=== PATIENT | male | born 1995 | race Caucasian/White ===

== ENCOUNTER 2017-03-27 05:35 | Observation (INO) | payer SELFPAY ==
[2017-03-27] VITALS (9 sets, daily range): BP systolic 117–149; BP diastolic 57–86; PULSE 75–105; RESP 16–24; TEMP 98.4–99; O2SAT 96–100
[~2017-03-27] VITALS: Ht 185.4 cm; Wt 90.0 kg
[~2017-03-27 05:35] MED LIST: IBUP600 PO; Z.0.NO CURRENT MEDS
[2017-03-27] MEDS ORDERED: SODIUM CHLOR 0.9% 1000 ML INJ 1,000 ML IV ONE ×2 (05:37→06:45)
[2017-03-27] MEDS ORDERED: SODIUM CHLORIDE 0.9% FLUSH 10 ML FLUSH IVF PRN (05:45)
--- NOTE | 2017-03-27 05:49 | PD ---
HPI Chief Complaint: Syncope/Near-Syncope Time Seen by Provider: 05:37 Travel History International Travel<30 days: No Contact w/Intl Traveler<30days: No Traveled to known affect area: No History of Present Illness HPI The patient is a 22-year-old male who presents emergency department for a syncopal episode. The patient states he smoked marijuana last night, did not well, and get up to use the restroom earlier tonight when he apparently has syncopal episode. According to EMS, the brother states the patient was walking back to his bedroom when he has syncopal episode. The patient does not recall the syncopal episode, but does complain of mild chest tightness and shortness of breath. The patient states he has had multiple episodes of syncope in the past but has not had a workup secondary to insurance issues. He denies any known history of arrhythmia or valvular disorders. He denies any current headache, neck pain, nausea, vomiting, diarrhea, abdominal pain, or weakness of the upper or lower extremities. He does complain of mild shortness of breath, states this is been ongoing for several years is intermittent and is not exacerbated by exertion. Symptoms are mild to moderate, no alleviating or exacerbating factors. The patient denies any trauma to the tongue or urinary incontinence. PFSH Past Medical History Narrative Medical ADHD Diminished Hearing: No Past Surgical History Surgical History: No Previous Surgery Social History Alcohol Use: Yes (OCC.) Tobacco Use: Yes Substance Use: Yes (MARIJUANA) Allergies-Medications (Allergen,Severity, Reaction): Coded Allergies: No Known Allergies (Verified , 03/27/17) Reported Meds & Prescriptions Reported Meds & Active Scripts Active Review of Systems Except as stated in HPI: all other systems reviewed are Neg Eyes: No: Blurred Vision HENT: No: Headaches, Lightheadedness, Neck Pain Cardiovascular: Positive: Chest Pain or Discomfort Respiratory: Positive: Shortness of Breath Gastrointestinal: No: Nausea, Vomiting, Abdominal Pain Musculoskeletal: No: Weakness Neurologic: Positive: Other (positive LOC according to EMS report from brother) , No: Dizziness, Focal Abnormalities, Change in Mentation, Paresthesia, Sensory Disturbance Physical Exam Narrative GENERAL: Awake, alert, pleasant 22-year-old male who appears his stated age and is in no acute respiratory distress. SKIN: Focused skin assessment warm/dry. HEAD: Atraumatic. Normocephalic. No obvious hematomas or areas of ecchymosis. EYES: Pupils equal and round. Pupils are 4 mm bilateral and reactive. ENT: No nasal bleeding or discharge. Mucous membranes pink and moist. No obvious trauma to the tongue. NECK: Trachea midline. No JVD. No tenderness of the cervical vertebrae. CARDIOVASCULAR: Regular, tachycardic with a heart rate of 105. RESPIRATORY: No accessory muscle use. Clear to auscultation. Breath sounds equal bilaterally. GASTROINTESTINAL: Abdomen soft, non-tender, nondistended. No rebound tenderness. MUSCULOSKELETAL: No obvious deformities. No clubbing. No cyanosis. No edema. NEUROLOGICAL: Awake and alert. No obvious cranial nerve deficits. Motor grossly within normal limits. Normal speech. Nonfocal. 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 PSYCHIATRIC: Appropriate mood and affect; insight and judgment normal. Data Data Last Documented VS Vital Signs Date Time Temp Pulse Resp B/P Pulse Ox O2 Delivery O2 Flow Rate FiO2 03/27/17 06:09 110 20 129/58 107 17 129/62 116 24 125/72 03/27/17 05:48 100 Room Air 03/27/17 05:39 98.6 Orders Electrocardiogram (03/27/17 05:37) Complete Blood Count With Diff (03/27/17 05:37) Comprehensive Metabolic Panel (03/27/17 05:37) Magnesium (Mg) (03/27/17 05:37) Chest, Single Ap (03/27/17 05:37) Ecg Monitoring (03/27/17 05:37) Iv Access Insert/Monitor (03/27/17 05:37) Oximetry (03/27/17 05:37) Sodium Chloride 0.9% Flush (Ns Flush) (03/27/17 05:45) Sodium Chlor 0.9% 1000 Ml Inj (Ns 1000 M (03/27/17 05:37) Orthostatic Vital Signs (03/27/17 05:37) Lactic Acid (03/27/17 05:37) Ct Brain W/O Iv Contrast(Rout) (03/27/17 ) Admit Order (Ed Use Only) (03/27/17 06:37) Sodium Chlor 0.9% 1000 Ml Inj (Ns 1000 M (03/27/17 06:45) Echo 2d Comp With Doppler (03/27/17 ) Eeg Study (03/27/17 ) ^ Seizure Precautions (03/27/17 06:33) Lorazepam Inj (Ativan Inj) (03/27/17 06:45) Lactic Acid (03/27/17 12:00) Place In Observation (03/27/17 ) Vital Signs (Adult) Q4H (03/27/17 06:33) Neuro Checks Q4H (03/27/17 06:33) Activity Oob With Assistance (03/27/17 06:33) Surgery Manager / Telemetry .CONTINUOUS (03/27/17 06:33) Intake + Output MEME.QSHIFT (03/27/17 06:33) Diet Regular Basic (03/27/17 Breakfast) Sodium Chlor 0.9% 1000 Ml Inj (Ns 1000 M (03/27/17 06:33) Sodium Chloride 0.9% Flush (Ns Flush) (03/27/17 06:45) Sodium Chloride 0.9% Flush (Ns Flush) (03/27/17 09:00) Ondansetron Inj (Zofran Inj) (03/27/17 06:45) Comprehensive Metabolic Panel (03/28/17 06:00) Complete Blood Count With Diff (03/28/17 06:00) Troponin I (03/27/17 12:00) Troponin I (03/27/17 18:00) Scd Bilateral/Knee High MEME.BID (03/27/17 06:33) Shin Bilateral/Knee High MEME.QSHIFT (03/27/17 06:33) Acetaminophen (Tylenol) (03/27/17 06:45) Docusate Sodium-Senna (Tia-Colace) (03/27/17 09:00) Magnesium Hydroxide Liq (Milk Of Magnesi (03/27/17 06:45) Sennosides (Senokot) (03/27/17 06:45) Bisacodyl Supp (Dulcolax Supp) (03/27/17 06:45) Lactulose Liq (Lactulose Liq) (03/27/17 06:45) Urinalysis - C+S If Indicated (03/27/17 06:38) Drug Screen, Random Urine (03/27/17 06:38) Labs Laboratory Tests Test 03/27/17 05:50 White Blood Count 13.7 TH/MM3 Red Blood Count 4.80 MIL/MM3 Hemoglobin 13.5 GM/DL Hematocrit 39.1 % Mean Corpuscular Volume 81.5 FL Mean Corpuscular Hemoglobin 28.2 PG Mean Corpuscular Hemoglobin 34.6 % Concent Red Cell Distribution Width 12.9 % Platelet Count 211 TH/MM3 Mean Platelet Volume 8.9 FL Neutrophils (%) (Auto) 68.5 % Lymphocytes (%) (Auto) 21.6 % Monocytes (%) (Auto) 5.3 % Eosinophils (%) (Auto) 4.3 % Basophils (%) (Auto) 0.3 % Neutrophils # (Auto) 9.4 TH/MM3 Lymphocytes # (Auto) 3.0 TH/MM3 Monocytes # (Auto) 0.7 TH/MM3 Eosinophils # (Auto) 0.6 TH/MM3 Basophils # (Auto) 0.0 TH/MM3 CBC Comment DIFF FINAL Differential Comment Sodium Level 139 MEQ/L Potassium Level 3.7 MEQ/L Chloride Level 103 MEQ/L Carbon Dioxide Level 26.1 MEQ/L Anion Gap 10 MEQ/L Blood Urea Nitrogen 10 MG/DL Creatinine 1.21 MG/DL Estimat Glomerular Filtration 74 ML/MIN Rate Random Glucose 232 MG/DL Lactic Acid Level 3.2 mmol/L Calcium Level 8.6 MG/DL Magnesium Level 2.0 MG/DL Total Bilirubin 0.3 MG/DL Aspartate Amino Transf 8 U/L (AST/SGOT) Alanine Aminotransferase 19 U/L (ALT/SGPT) Alkaline Phosphatase 50 U/L Total Protein 7.0 GM/DL Albumin 3.6 GM/DL [facility] Medical Decision Making Medical Screen Exam Complete: Yes Emergency Medical Condition: Yes Medical Record Reviewed: Yes Interpretation(s) EKG reveals normal sinus rhythm with a rate in 99. No ischemic changes or ectopy noted. No evidence of WPW or Brugada syndrome. Last Impressions Chest X-Ray 03/27/17 0537 Signed Impressions: Service Date/Time: Monday, March 27, 2017 05:52 - CONCLUSION: No acute disease. Rafael Judge MD Head CT 03/27/17 0000 Signed Impressions: Service Date/Time: Monday, March 27, 2017 06:44 - CONCLUSION: No acute disease. Paranasal sinus disease. Rafael Judge MD Laboratory Tests Test 03/27/17 05:50 White Blood Count 13.7 TH/MM3 Red Blood Count 4.80 MIL/MM3 Hemoglobin 13.5 GM/DL Hematocrit 39.1 % Mean Corpuscular Volume 81.5 FL Mean Corpuscular Hemoglobin 28.2 PG Mean Corpuscular Hemoglobin 34.6 % Concent Red Cell Distribution Width 12.9 % Platelet Count 211 TH/MM3 Mean Platelet Volume 8.9 FL Neutrophils (%) (Auto) 68.5 % Lymphocytes (%) (Auto) 21.6 % Monocytes (%) (Auto) 5.3 % Eosinophils (%) (Auto) 4.3 % Basophils (%) (Auto) 0.3 % Neutrophils # (Auto) 9.4 TH/MM3 Lymphocytes # (Auto) 3.0 TH/MM3 Monocytes # (Auto) 0.7 TH/MM3 Eosinophils # (Auto) 0.6 TH/MM3 Basophils # (Auto) 0.0 TH/MM3 CBC Comment DIFF FINAL Differential Comment Sodium Level 139 MEQ/L Potassium Level 3.7 MEQ/L Chloride Level 103 MEQ/L Carbon Dioxide Level 26.1 MEQ/L Anion Gap 10 MEQ/L Blood Urea Nitrogen 10 MG/DL Creatinine 1.21 MG/DL Estimat Glomerular Filtration 74 ML/MIN Rate Random Glucose 232 MG/DL Lactic Acid Level 3.2 mmol/L Calcium Level 8.6 MG/DL Magnesium Level 2.0 MG/DL Total Bilirubin 0.3 MG/DL Aspartate Amino Transf 8 U/L (AST/SGOT) Alanine Aminotransferase 19 U/L (ALT/SGPT) Alkaline Phosphatase 50 U/L Total Protein 7.0 GM/DL Albumin 3.6 GM/DL Differential Diagnosis Differential diagnosis includes syncope, arrhythmia, valvular disorder, vasovagal syncope, dehydration, electrolyte abnormality, seizure. Narrative Course IV was established, labs are drawn and sent, and the patient was placed on cardiac telemetry monitoring and continuous pulse oximetry monitoring. EKG was ordered and interpreted. Chest x-ray was obtained. The patient was administered IV fluids and monitored in the emergency department. EKG is unremarkable, no evidence of WPW, Brugada syndrome, or ectopy. Chest x-rays unremarkable. Lactic acid is elevated at 3.2, patient may have had a syncopal episode versus a seizure. He states he's had multiple events like this in the past with no workup, has no access to healthcare does not have a primary physician or insurance. Therefore, discussed the patient with the on-call hospitalist who agrees with 23 hour observation, patient will benefit from cardiac telemetry monitoring, echocardiogram, EEG. CT the brain was negative. Patient will be a 23 hour observation. Physician Communication Physician Communication I discussed the patient with Dr. Bolivar who agrees with 23 hour observation. Diagnosis Primary Impression: Syncope Qualified Code: R55 - Syncope, unspecified syncope type Admitting Information Admitting Physician Requests: Observation Condition: Stable Mp Adan MD Mar 27, 2017 05:49
--- NOTE | 2017-03-27 06:01 | RADRPT ---
EXAM DATE/TIME: 03/27/2017 05:52 [facility] COMPARISON: CHEST SINGLE AP, April 23, 2016, 21:03. INDICATIONS : Syncopal episode this morning. MEDICAL HISTORY : None. SURGICAL HISTORY : None. ENCOUNTER: Initial ACUITY: 1 day PAIN SCORE: 7/10 LOCATION: Bilateral chest FINDINGS: A single view of the chest demonstrates the lungs to be symmetrically aerated without evidence of mas s, infiltrate or effusion. The cardiomediastinal contours are unremarkable. Osseous structures are intact. CONCLUSION: No acute disease. Rafael Judge MD on March 27, 2017 at 6:00 Board Certified Radiologist. This report was verified electronically.
[2017-03-27 06:10] LABS: AUTOMATED NEUTROPHIL # 9.4 TH/MM3 (1.8-7.7); BASOPHIL % 0.3 % (0.0-2.0); EOSINOPHIL # 0.6 TH/MM3 (0-0.4); EOSINOPHIL % 4.3 % (0.0-4.0); HEMATOCRIT 39.1 % (39.0-51.0); HEMO FLAGS DIFF FINAL; LYMPH % 21.6 % (9.0-44.0); MEAN CELL VOLUME 81.5 FL (80.0-100.0); MEAN CORPUSCULAR HEMOGLOBIN 28.2 PG (27.0-34.0); MEAN CORPUSCULAR HGB CONC 34.6 % (32.0-36.0); MONO % 5.3 % (0.0-8.0); NEUT % 68.5 % (16.0-70.0); PLATELET COUNT 211 TH/MM3 (150-450); RED CELL DISTRIBUTION WIDTH 12.9 % (11.6-17.2); WHITE BLOOD COUNT 13.7 TH/MM3 (4.0-11.0)
[2017-03-27 06:26] LABS: ALT (GPT) 19 U/L (12-78); ANION GAP 10 MEQ/L (5-15); AST (GOT) 8 U/L (15-37); BICARBONATE 26.1 MEQ/L (21.0-32.0); BLOOD UREA NITROGEN 10 MG/DL (7-18); CHLORIDE 103 MEQ/L (98-107); GLOMERULAR FILTRATION RATE 74 ML/MIN (>89); POTASSIUM 3.7 MEQ/L (3.5-5.1); SODIUM (NA) 139 MEQ/L (136-145)
[2017-03-27 06:29] LABS: ALKALINE PHOSPHATASE 50 U/L (45-117); TOTAL BILIRUBIN ADULT 0.3 MG/DL (0.2-1.0)
[2017-03-27] MEDS ORDERED: LACTULOSE SYRUP 20 GM/30 ML CUP PO PRN (06:45)
[2017-03-27] MEDS ORDERED: BISACODYL 10 MG SUPP RECTAL PRN (06:45)
[2017-03-27] MEDS ORDERED: MAGNESIUM HYDROXIDE SUSP 30 ML CUP PO PRN (06:45)
[2017-03-27] MEDS ORDERED: SENNOSIDES 8.6 MG TAB PO PRN (06:45)
[2017-03-27] MEDS ORDERED: SODIUM CHLORIDE 0.9% FLUSH 10 ML FLUSH IV FLUSH PRN (06:45)
[2017-03-27] MEDS ORDERED: ONDANSETRON HCL 4 MG/2 ML VIAL IVP PRN (06:45)
[2017-03-27] MEDS ORDERED: ACETAMINOPHEN 325 MG TAB PO PRN (06:45)
[2017-03-27] MEDS ORDERED: LORazepam 2 MG/ML VIAL IV PUSH PRN (06:45)
--- NOTE | 2017-03-27 06:52 | RADRPT ---
EXAM DATE/TIME: 03/27/2017 06:44 [facility] COMPARISON: No previous studies available for comparison. INDICATIONS : Syncopal episode, fall - repetitive questioning. RADIATION DOSE: 45.07 CTDIvol (mGy) MEDICAL HISTORY : None SURGICAL HISTORY : None. ENCOUNTER: Initial ACUITY: 1 day PAIN SCALE: 0/10 LOCATION: cranial TECHNIQUE: Multiple contiguous axial images were obtained of the head. Using automated exposure control and adj ustment of the mA and/or kV according to patient size, radiation dose was kept as low as reasonably a chievable to obtain optimal diagnostic quality images. DICOM format image data is available electro nically for review and comparison. FINDINGS: CEREBRUM: The ventricles are normal for age. No evidence of midline shift, mass lesion, hemorrhage or acute in farction. No extra-axial fluid collections are seen. POSTERIOR FOSSA: The cerebellum and brainstem are intact. The 4th ventricle is midline. The cerebellopontine angle i s unremarkable. EXTRACRANIAL: The visualized portion of the orbits is intact. Partial opacification of the paranasal sinuses. SKULL: The calvaria is intact. No evidence of skull fracture. CONCLUSION: No acute disease. Paranasal sinus disease. Rafael Judge MD on March 27, 2017 at 6:49 Board Certified Radiologist. This report was verified electronically.
[2017-03-27] MEDS: SODIUM CHLOR 0.9% 1000 ML INJ 1,000 ML IV SCH ×3 (07:24→20:21)
--- NOTE | 2017-03-27 07:40 | HHI.HP ---
[facility] No Primary Care Physician Admission Diagnosis syncope versus seizure Diagnoses: Chief Complaint: syncope Travel History International Travel<30 Days: No Contact w/Intl Traveler <30 Da: No Traveled to Known Affected Are: No History of Present Illness Written by Camila Miramontes, acting as scribe for Dr. Falcon on 03/27/17 at 07:59. This note was transcribed by scribGerald [email or web address]. I, Dr. Columba Falcon personally performed the history, physical exam, and medical decision making; and confirmed the accuracy of the information in the transcribed note. Authenticated by Dr. Columba Falcon on 03/27/17 at 07:59. 22-year-old male with history of ADHD, tobacco use, and marijuana use presents after a syncopal episode. The patient is seen with his mom at bedside who assists with the history. The mother reports history of syncope that started 1 year ago. This episode occurred around 4am this morning 03/27. The patient stayed awake the entire night which is usual for him, smoked marijuana, then the patient's brother reports the patient was walking out of the bathroom when all of a sudden heard a thump and found the patient laying face down on the floor. There was no reported seizure activity, tremor, tongue biting, or urinary incontinence. Since the episode, the mother reports the patient has been "delirious", confused, and repeatedly asking the same questions. He has no recollection of the events leading up to or after the episode. The patient does report occasional dizziness, shortness of breath, and chest pains "for many years". Denies any fevers/chills, palpitations, nausea/vomiting, or abdominal pain. The patient does admit to not eating regularly, yesterday had probably 1 or 2 meals throughout the entire day. The patient has never been worked up for syncope in the past secondary to insurance reasons and lack of access to healthcare provider. He has not seen a physician since he was a young child. Review of Systems Except as stated in HPI: all other systems reviewed are Neg Past Family Social History Past Medical History ADHD Febrile seizures as a child Past Surgical History No prior surgeries Reported Medications Does not take medications on a regular basis. Allergies: Coded Allergies: No Known Allergies (Verified , 03/27/17) Active Ordered Medications Current Medications Medications (Trade) Dose Ordered Sig/Jigna Route Start Time Stop Time Status Last Admin (NS 1000 ml Inj) 1,000 ml @ 999 mls/hr BOLUS ONCE IV 03/27/17 06:45 03/27/17 07:45 03/27/17 07:24 Lorazepam 1 mg 1 mg Q5M PRN IV PUSH 03/27/17 06:45 (NS 1000 ml Inj) 1,000 ml @ 150 mls/hr Q6H40M IV 03/27/17 06:33 03/27/17 07:24 (NS Flush) 2 ml UNSCH PRN IV FLUSH 03/27/17 06:45 (NS Flush) 2 ml BID IV FLUSH 03/27/17 09:00 (Zofran Inj) 4 mg Q6H PRN IVP 03/27/17 06:45 (Tylenol) 650 mg Q6H PRN PO 03/27/17 06:45 (Tia-Colace) 1 tab BID PO 03/27/17 09:00 (Milk Of Magnesia Liq) 30 ml Q12H PRN PO 03/27/17 06:45 (Senokot) 17.2 mg Q12H PRN PO 03/27/17 06:45 (Dulcolax Supp) 10 mg DAILY PRN RECTAL 03/27/17 06:45 (Lactulose Liq) 30 ml DAILY PRN PO 03/27/17 06:45 Family History Father at age 32 from sepsis with multiorgan failure Mother with pre-cervical cancer, kidney cysts, hypertension Maternal grandmother and great great grandfather with epilepsy Paternal uncle with heart disease Social History Smokes tobacco 1/2 PPD since age 11 Drinks alcohol "rarely" Smokes marijuana 2-4days per week, no other illicit drug use Physical Exam Vital Signs Vital Signs Date Time Temp Pulse Resp B/P Pulse Ox O2 Delivery O2 Flow Rate FiO2 03/27/17 07:18 99.0 102 16 121/57 99 Room Air 03/27/17 06:09 110 20 129/58 107 17 129/62 116 24 125/72 03/27/17 05:48 100 Room Air 03/27/17 05:39 98.6 105 17 147/86 100 Physical Exam GENERAL: Well-nourished, well-developed young male patient in NAD. SKIN: Warm and dry. No rash. HEAD: Normocephalic. Atraumatic. EYES: Pupils equal and round. No scleral icterus. No injection or drainage. ENT: No nasal bleeding or discharge. Mucous membranes pink and moist. NECK: Supple. Trachea midline. CARDIOVASCULAR: Regular rate and rhythm. S1, S2 noted. No murmur appreciated. RESPIRATORY: No accessory muscle use. Clear to auscultation. Breath sounds equal bilaterally. GASTROINTESTINAL: Abdomen soft, non-tender, nondistended. Normoactive bowel sounds x4. MUSCULOSKELETAL: No obvious deformities. Extremities without clubbing, cyanosis , or edema. NEUROLOGICAL: Awake and alert. No obvious cranial nerve deficits. Motor grossly within normal limits. 5/5 muscle strength in bilateral upper and lower extremities. Normal speech. PSYCHIATRIC: Appropriate mood and affect; insight and judgment normal. Laboratory Laboratory Tests Test 03/27/17 05:50 White Blood Count 13.7 Red Blood Count 4.80 Hemoglobin 13.5 Hematocrit 39.1 Mean Corpuscular Volume 81.5 Mean Corpuscular Hemoglobin 28.2 Mean Corpuscular Hemoglobin 34.6 Concent Red Cell Distribution Width 12.9 Platelet Count 211 Mean Platelet Volume 8.9 Neutrophils (%) (Auto) 68.5 Lymphocytes (%) (Auto) 21.6 Monocytes (%) (Auto) 5.3 Eosinophils (%) (Auto) 4.3 Basophils (%) (Auto) 0.3 Neutrophils # (Auto) 9.4 Lymphocytes # (Auto) 3.0 Monocytes # (Auto) 0.7 Eosinophils # (Auto) 0.6 Basophils # (Auto) 0.0 CBC Comment DIFF FINAL Differential Comment Sodium Level 139 Potassium Level 3.7 Chloride Level 103 Carbon Dioxide Level 26.1 Anion Gap 10 Blood Urea Nitrogen 10 Creatinine 1.21 Estimat Glomerular Filtration 74 Rate Random Glucose 232 Lactic Acid Level 3.2 Calcium Level 8.6 Magnesium Level 2.0 Total Bilirubin 0.3 Aspartate Amino Transf 8 (AST/SGOT) Alanine Aminotransferase 19 (ALT/SGPT) Alkaline Phosphatase 50 Total Protein 7.0 Albumin 3.6 Result Diagram: 03/27/17 0550 03/27/17 0550 Imaging Last Impressions Chest X-Ray 03/27/17 0537 Signed Impressions: Service Date/Time: Monday, March 27, 2017 05:52 - CONCLUSION: No acute disease. Rafael Judge MD Head CT 03/27/17 0000 Signed Impressions: Service Date/Time: Monday, March 27, 2017 06:44 - CONCLUSION: No acute disease. Paranasal sinus disease. Rafael Judge MD Assessment and Plan Problem List: (1) Syncope ICD Code: R55 Status: Acute Assessment and Plan 22-year-old male with history of ADHD, tobacco use, and marijuana use presents after a syncopal episode. Syncope: unclear etiology. Suspect multifactorial secondary to not sleeping, not eating, dehydration, and smoking marijuana; however need to rule out other possible etiologies. Head CT images reviewed, no acute findings -Check EEG -Check Echocardiogram -Check Holter monitor -Check Urine Drug Screen -Rule out ACS with serial cardiac enzymes/EKGs -Orthostatics negative -Supportive treatment with IVF NS at 150cc/hr -Monitor neuro checks, seizure precautions VIKTORIYA: suspect secondary to dehydration. Cr 1.21, previously Cr 1.03 in April2016. -give IVF -repeat BMP Tachycardia: EKG with Sinus Rhythm, HR 99. Patient has been tachycardic in the low 100s throughout admission, suspect secondary to dehydration -check holter as above -Give IVF Leukocytosis and Lactic Acidosis: suspect stress reaction from syncope/fall. WBC 13.7K, Lactic Acid 3.2. No clear signs of infection. UA negative. CXR unremarkable. -give IVF -repeat Lactate 1.3, resolved -repeat CBC, monitor for fevers DVT Prophylaxis: teds/SCDs Discussed Condition With Patient, patient's mother Problem Qualifiers (1) Syncope: Qualified Code: R55 - Syncope, unspecified syncope type Camila Miramontes PA-C Mar 27, 2017 07:40 Columba Falcon MD Mar 27, 2017 18:38
[2017-03-27] MEDS: DOCUSATE SODIUM 50 MG/SENNA 8.6 MG TAB PO SCH ×2 (09:00→20:26)
[2017-03-27 09:32] LABS: BLOOD, URINE SMALL (NEG); COMMENT (UR) CULT NOT INDICATED; CULTURE IF INDICATED CULT NOT INDICATED; GLUCOSE,URINE 70 mg/dL (NEG); KETONE, URINE NEG (NEG); MUCUS URINE FEW /lpf (OCC); NITRITE,URINE NEG (NEG); PH, URINE 7.5 (5.0-8.5); URINE COLOR YELLOW (YELLW/STRAW)
[2017-03-27] MEDS: SODIUM CHLORIDE 0.9% FLUSH 10 ML FLUSH IV FLUSH SCH ×2 (10:15→20:21)
--- NOTE | 2017-03-27 12:09 | EKG ---
Date Performed: 03/27/2017 Time Performed: 05:44:04 PTAGE: 22 years EKG: Sinus rhythm Since previous tracing, no significant change noted NORMAL ECG PREVIOUS TRACING : 04/23/2016 21.02 DOCTOR: Bubba Zarate Interpretating Date/Time 03/27/2017 12:08:38
[2017-03-27 12:52] LABS: AMPHETAMINE, URINE NEG (NEG); BARBITURATES, URINE NEG (NEG); COCAINE, URINE NEG (NEG)
[2017-03-28] MEDS: SODIUM CHLOR 0.9% 1000 ML INJ 1,000 ML IV SCH (02:33)
[2017-03-28 03:03] VITALS: BP 121/59; PULSE 78; RESP 18; TEMP 98.7; O2SAT 99
[2017-03-28 07:36] VITALS: BP 126/75; PULSE 78; RESP 20; TEMP 98.7; O2SAT 99
[2017-03-28 07:43] LABS: AUTOMATED NEUTROPHIL # 4.2 TH/MM3 (1.8-7.7); BASOPHIL % 0.4 % (0.0-2.0); EOSINOPHIL # 0.4 TH/MM3 (0-0.4); HEMATOCRIT 35.9 % (39.0-51.0); HEMO FLAGS DIFF FINAL; LYMPH % 35.8 % (9.0-44.0); LYMPHOCYTE # 2.9 TH/MM3 (1.0-4.8); MEAN CELL VOLUME 81.4 FL (80.0-100.0); MEAN CORPUSCULAR HEMOGLOBIN 27.7 PG (27.0-34.0); MONO % 7.4 % (0.0-8.0); NEUT % 51.4 % (16.0-70.0); PLATELET COUNT 213 TH/MM3 (150-450); RED BLOOD COUNT 4.41 MIL/MM3 (4.50-5.90); RED CELL DISTRIBUTION WIDTH 13.1 % (11.6-17.2); WHITE BLOOD COUNT 8.1 TH/MM3 (4.0-11.0)
[2017-03-28 08:08] LABS: ANION GAP 8 MEQ/L (5-15); AST (GOT) 9 U/L (15-37); BICARBONATE 24.7 MEQ/L (21.0-32.0); BLOOD UREA NITROGEN 4 MG/DL (7-18); CHLORIDE 109 MEQ/L (98-107); GLOMERULAR FILTRATION RATE 122 ML/MIN (>89); POTASSIUM 3.7 MEQ/L (3.5-5.1); SODIUM (NA) 142 MEQ/L (136-145)
[2017-03-28 08:11] LABS: ALT (GPT) 16 U/L (12-78)
[2017-03-28 08:12] LABS: ALKALINE PHOSPHATASE 39 U/L (45-117); TOTAL BILIRUBIN ADULT 0.3 MG/DL (0.2-1.0)
[2017-03-28] MEDS: SODIUM CHLORIDE 0.9% FLUSH 10 ML FLUSH IV FLUSH SCH (09:00)
[2017-03-28] MEDS: DOCUSATE SODIUM 50 MG/SENNA 8.6 MG TAB PO SCH (09:00)
--- NOTE | 2017-03-28 10:27 | MG ---
cc: ERNST HERNANDEZ M.D. Lab No: Date: 03/28/2017 Age: 22 Sex: M Race: REQUESTING PHYSICIAN Dr. Vallejo. An EEG was obtained on this 22-year-old patient being evaluated for syncope and possible seizures. The EEG shows 10-12 per second low and mid amplitude rhythms the center and posterior head regions. At times there is some attenuation of the alpha activity on the left but this may be technical or a benign physiological finding. There is some artifact and hyperventilation disclosed no significant change. Photic stimulation showed a bilateral driving response. The patient drowses and there is some theta activity intermixed in the central and posterior head regions. There are some small sharp waves/discharge maximum centrally during the drowsiness recording. INTERPRETATION Probably normal awake and asleep EEG. Some small sharp discharges are noted but no distinct epileptiform features present. Ernst Hernandez MD OFC/TLL /9:30 AM /10:21 AM
[2017-03-28] MEDS ORDERED: ALBUTEROL SULFATE 90 MCG/ACT HFA 8 GM INHALER INH PRN (10:45)
[2017-03-28] MEDS ORDERED: ALBUTEROL SULFATE 90 MCG/ACT HFA 8 GM INHALER INH ONE (10:45)
--- NOTE | 2017-03-28 10:46 | HHI.PR ---
Subjective Remarks Follow-up for syncope. The patient is feeling much better today. He does continue to complain of difficulty catching his breath, but reports no pain with breathing. He states he has had intermittent episodes of chest pain for years. He reports a 20 pound weight loss in the past 6 months or so. He reports that he only eats probably 2 meals a day and does not stay well hydrated. He does continue to smoke half to 1 pack per day. He does smoke about 1 g of marijuana daily, although states he has been cutting back. He does not recall much about the events surrounding his syncopal episode yesterday. He states that he did fall on his chin. He states that he has been tolerating intake with no vomiting or diarrhea. Has been ambulating with no lightheadedness or dizziness. Objective Vitals Vital Signs Date Time Temp Pulse Resp B/P Pulse Ox O2 Delivery O2 Flow Rate FiO2 03/28/17 07:36 98.7 78 20 126/75 99 03/28/17 03:03 98.7 78 18 121/59 99 03/27/17 23:15 98.5 75 18 117/60 99 03/27/17 20:00 93 03/27/17 19:26 98.4 93 20 149/68 99 03/27/17 17:54 98.8 80 18 136/72 98 03/27/17 13:52 80 03/27/17 12:11 98.8 95 20 136/60 96 I/O 03/27/17 03/27/17 03/27/17 03/28/17 03/28/17 03/28/17 06:59 14:59 22:59 06:59 14:59 22:59 Intake Total 1000 ml 1240 ml Output Total 400 ml 900 ml Balance 600 ml 340 ml Intake Oral 240 ml IV Total 1000 ml 1000 ml Output Urine Total 400 ml 900 ml # Voids 1 # Bowel Movements 1 Result Diagram: 03/28/17 0650 03/28/17 0650 Imaging Last Impressions Chest X-Ray 03/27/17 0537 Signed Impressions: Service Date/Time: Monday, March 27, 2017 05:52 - CONCLUSION: No acute disease. Rafael Judge MD Head CT 03/27/17 0000 Signed Impressions: Service Date/Time: Monday, March 27, 2017 06:44 - CONCLUSION: No acute disease. Paranasal sinus disease. Rafael Judge MD Objective Remarks GENERAL: Well-developed well-nourished. In no acute distress. SKIN: Warm and dry. No lesions noted. HEENT: Normocephalic. Pupils equal and round. EOMs intact with no nystagmus. Mucous membranes pink and moist. CARDIOVASCULAR: Regular rate and rhythm. No murmur appreciated. No chest wall TTP. RESPIRATORY: No accessory muscle use. Clear to auscultation. Breath sounds equal bilaterally. GASTROINTESTINAL: Abdomen soft, non-tender, nondistended. Bowel sounds x4. MUSCULOSKELETAL: No obvious deformities. No clubbing or cyanosis. No edema. NEUROLOGICAL: Awake and alert. No focal neurological deficits. Moves upper and lower extremities spontaneously. Normal speech. Strength 5/5. PSYCHIATRIC: Appropriate mood and affect; insight and judgment normal. A/P Problem List: (1) Syncope ICD Code: R55 Status: Acute Assessment and Plan 22-year-old male with history of ADHD, tobacco use, and marijuana use presents after a syncopal episode. Syncope: unclear etiology. Suspect multifactorial secondary to not sleeping, not eating, dehydration, and smoking marijuana; however need to rule out other possible etiologies. Reviewed: Head CT no acute findings. EEG with no distinct epileptiform features present. Telemetry reviewed with no significant arrhythmias. UDS with marijuana. Troponin negative 2. Labs with signs of dehydration. Non- orthostatic. -Echocardiogram performed, results pending -Holter monitor -Given IVF -Monitor neuro checks, seizure precautions -D/W Dr. Mancini, check thyroid function Chest pain/shortness breath: Sounds chronic. ACS ruled out as above. -Albuterol as needed -Check d-dimer VIKTORIYA: suspect secondary to dehydration. Cr 1.21, improved to 0.79 with IVF. -Improved, tolerating oral intake, DC IVF Tachycardia: EKG with Sinus Rhythm, HR 99. Heart rate improved with IV hydration. -checking holter as above Leukocytosis and Lactic Acidosis: suspect secondary to dehydration and stress reaction from syncope/fall. WBC 13.7K, Lactic Acid 3.2. No clear signs of infection. UA negative. CXR unremarkable. -given IVF, repeat Lactate 1.3, repeat WBC 8.1, resolved Marijuana/tobacco abuse: Patient counseled on cessation. DVT Prophylaxis: teds/SCDs Discharge Planning Follow-up results of echocardiogram, d-dimer, and thyroid function. If workup remains unremarkable and patient remains stable, discharge planning. 1730 d-dimer mildly elevated, checked pulmonary angiogram which showed no definite pulmonary embolism. Thyroid function within normal limits. Echocardiogram unremarkable. The patient did report that his breathing was improved with albuterol, continue MDI. Discussed with patient and mother at bedside, all questions answered to the best of my ability, and patient family history agreeable for plan of care for discharge today and outpatient follow-up with PCP. Problem Qualifiers (1) Syncope: Qualified Code: R55 - Syncope, unspecified syncope type Prasanth Vallejo Mar 28, 2017 10:46
[2017-03-28] MEDS ORDERED: ALBUTEROL SULFATE 90 MCG/ACT HFA 18 GM INHALER INH PRN (11:36)
[2017-03-28 11:43] VITALS: BP 126/70; PULSE 90; RESP 17; TEMP 98.4; O2SAT 99
[2017-03-28 12:03] VITALS: PULSE 62
--- NOTE | 2017-03-28 15:11 | ECHRPT ---
Indication: cardiomyopathy CONCLUSIONS The left ventricular systolic function is normal with an estimated ejection fraction in the range of 60-65%. Left ventricular diastolic function parameters are normal. Trace tricuspid valve regurgitation noticed. BP: 126 / 75 HR: Rhythm: MEASUREMENTS (Male / Female) Normal Values Technical Quality: 2D ECHO LV Diastolic Diameter PLAX 4.8 cm 4.2 - 5.9 / 3.9 - 5.3 cm LV Systolic Diameter PLAX 3.5 cm IVS Diastolic Thickness 1.2 cm 0.6 - 1.0 / 0.6 - 0.9 cm LVPW Diastolic Thickness 1.1 cm 0.6 - 1.0 / 0.6 - 0.9 cm LV Relative Wall Thickness 0.5 RV Internal Dim ED PLAX 3.3 cm M-MODE Aortic Root Diameter MM 3.5 cm LA Systolic Diameter MM 4.0 cm LA Ao Ratio MM 1.1 AV Cusp Separation MM 1.5 cm DOPPLER Mitral E Point Velocity 100.0 cm/s Mitral A Point Velocity 59.7 cm/s Mitral E to A Ratio 1.7 FINDINGS LEFT VENTRICLE Normal left ventricular size and wall thickness. The left ventricular systolic function is normal wi th an estimated ejection fraction in the range of 60-65%. Left ventricular diastolic function parameters a re normal. RIGHT VENTRICLE Normal right ventricular size and systolic function. LEFT ATRIUM The left atrial size is normal. RIGHT ATRIUM The right atrial size is normal. ATRIAL SEPTUM The interatrial septum not well visualized. AORTA The aortic root and proximal ascending aorta are normal in size on limited imaging. MITRAL VALVE Structurally normal mitral valve. No mitral valve stenosis or regurgitation. AORTIC VALVE Trileaflet aortic valve. No aortic valve stenosis or regurgitation. TRICUSPID VALVE Structurally normal tricuspid valve. No tricuspid valve stenosis Trace tricuspid valve regurgitation noticed PULMONARY VALVE The pulmonary valve is not well visualized. VESSELS The inferior vena cava is normal in size. PERICARDIUM No pericardial effusion. Mark Castillo DO (Electronically Signed) Final Date:28 March 2017 15:10
[2017-03-28 15:49] VITALS: BP 135/83; PULSE 80; RESP 22; TEMP 99.5; O2SAT 100
[2017-03-28 16:25] LABS: FREE T3 2.8 PG/ML (2.18-3.98); FREE T4 1.13 NG/DL (0.76-1.46)
[2017-03-28] MEDS ORDERED: IOHEXOL 350 MG/ML 10 ML VIAL (for RAD DIAG) IV ONE (16:48)
--- NOTE | 2017-03-28 17:04 | RADRPT ---
EXAM DATE/TIME: 03/28/2017 16:44 [facility] COMPARISON: No previous studies available for comparison. INDICATIONS : Patient SOB, syncope episode yesterday, evaluate for embolus. IV CONTRAST: 74 cc Omnipaque 350 (iohexol) IV RADIATION DOSE: 23.27 CTDIvol (mGy) MEDICAL HISTORY : None SURGICAL HISTORY : None. ENCOUNTER: Initial ACUITY: 1 day PAIN SCALE: 4/10 LOCATION: Bilateral chest TECHNIQUE: Volumetric scanning of the chest was performed using a pulmonary embolism protocol MIP images were re constructed. Using automated exposure control and adjustment of the mA and/or kV according to patien t size, radiation dose was kept as low as reasonably achievable to obtain optimal diagnostic quality images. DICOM format image data is available electronically for review and comparison. FINDINGS: PULMONARY ARTERIES: Examination is limited due to suboptimal bolus timing. The pulmonary arteries are visualized to the s egmental level only without evidence for intraluminal filling defect to suggest pulmonary artery embo lism. More distal segmental and subsegmental pulmonary arteries are incompletely evaluated. LUNGS: There is no consolidation or pneumothorax . No concerning pulmonary nodule is visualized. PLEURAE: There is no pleural thickening or pleural effusion. MEDIASTINUM: There is good visualization of the great vessels of the middle mediastinum. No evidence of mediastin al or hilar adenopathy/mass. Heart appears unremarkable without significant pericardial effusion. The re is 3 vessel arch anatomy. Thoracic aorta is normal in caliber without evidence for significant dis section or aneurysm. MUSCULOSKELETAL: Within normal limits for patient age. MISCELLANEOUS: The visualized upper abdominal organs demonstrate no acute abnormality. CONCLUSION: 1. Limited examination due to suboptimal contrast bolus timing. Pulmonary arteries are evaluated to t he segmental level only without evidence for pulmonary embolism. More distal segmental and subsegment al pulmonary arteries are incompletely evaluated. 2. Otherwise, unremarkable CT examination of the chest. Alexander Burden MD on March 28, 2017 at 16:56 Board Certified Radiologist. This report was verified electronically.
[2017-03-28] MEDS ORDERED: VENTAER INH (17:42)
[2017-03-28] MEDS ORDERED: SODIUM CHLOR 0.9% 1000 ML INJ 1,000 ML IV SCH (18:00)
--- NOTE | 2017-03-29 17:32 | HM ---
Date Performed: 03/27/2017 Time Performed: 16:10:00 HOOKUP DATE: 03/27/17 04:10:00 PM Sun ANALYSIS START TIME: 03/27/2017 4:15:00 PM ANALYSIS END TIME: 03/28/2017 3:43:13 PM PATIENT AGE: 22 PATIENT HEIGHT PATIENT WEIGHT DRUG LIST PATIENT DIAGNOSIS: SYNCOPE VS SEIZURE TEST NARRATIVE: The patient's average heart rate was 77 BPM. Heart rates greater than 120 B PM were noted < 1% of the time. No episodes of bradycardia were noted. No pauses exceeding 2.0 s econds were noted. No ventricular ectopics were noted. 4 supraventricular ectopics, which rep resented < 1% of the total beat count, were noted. The highest supraventricular ectopic frequency oc curred from 11:00 PM to 12:00 AM Mon. During this time 1 SVE(s) occurred. No episodes of ST depr ession (defined as -1.0 mm or more) were noted in channel 1. No episodes of ST depression (defined a s -1.0 mm or more) were noted in channel 2. No episodes of ST depression (defined as -1.0 mm or more ) were noted in channel 3. TEST INTERPRETATION: Patient was monitored 23 hours and 28 minutes. Patient is in normal Sinus r hythm . Average rate is 77 bpm. Periods of sinus bradycardia at 55 bpm at 08:03 am, periods of sinus tachyc ardia to 124 bpm at 6:08 pm, 4 PACs. Signed by : Joseph Rodriguez
== END 2017-03-28 18:57 | disposition home or self-care (01) ==
LOC: NEPC 05:35 → NEDA 06:39 → NEPHCDU 08:32
PROVIDERS: ADMIT Hospitalist; ATTEND Hospitalist
DX: R55 Syncope and collapse (principal); N17.9 Acute kidney failure, unspecified; R00.0 Tachycardia, unspecified; R00.1 Bradycardia, unspecified; D72.829 Elevated white blood cell count, unspecified; E87.2 Acidosis; F12.90 Cannabis use, unspecified, uncomplicated; R07.9 Chest pain, unspecified; R06.02 Shortness of breath; R42 Dizziness and giddiness; F90.9 Attention-deficit hyperactivity disorder, unspecified type; F17.200 Nicotine dependence, unspecified, uncomplicated; W19.XXXA Unspecified fall, initial encounter
CPT/HCPCS: 70450; 71010; 71275; 80053; 80307; 81001; 83605; 83735; 84439; 84443; 84481; 84484; 85025; 85379; 93005; 93225; 93226; 93306; 95819; 99285; G0378; J7030; Q9967